=== PATIENT | female | born 1970 | race Two or more races ===

== ENCOUNTER 2024-03-24 04:51 | Emergency (ER) | payer OTHER ==
[~2024-03-24] VITALS: Ht 157.5 cm; Wt 75.7 kg
[2024-03-24] MEDS ORDERED: COZAAR25 MG PO (05:05)
[2024-03-24] MEDS ORDERED: VENTOLIN HFA18 GM (05:05)
[2024-03-24] MEDS ORDERED: MEPERIDINE HCL/PF 50 MG/ML VIAL IM STA (05:22)
[2024-03-24] MEDS ORDERED: HYOSCYAMINE SULFATE 0.125 MG TAB.SUBL SL STA (05:22)
[2024-03-24] MEDS ORDERED: RINGERS SOLUTION,LACTATED 1,000 ML IV STA (05:22)
[2024-03-24] MEDS ORDERED: PROMETHAZINE HCL 50 MG/ML AMPUL IM STA (05:23)
[2024-03-24] MEDS ORDERED: PROMETHAZINE HCL 50 MG/ML AMPUL IM ONE (05:27)
[2024-03-24] MEDS ORDERED: HYOSCYAMINE SULFATE 0.125 MG TAB.SUBL ONE (05:27)
[2024-03-24 07:56] LABS: INR 0.97; PARTIAL THROMBOPLASTIN TIME 26.6 SECONDS (22.0-34.0); PROTHROMBIN TIME 10.2 SECONDS (9.0-11.5)
[2024-03-24 08:23] LABS: ALBUMIN 3.6 gm/dL (3.4-5.0); BILIRUBIN TOTAL 0.21 mg/dL (0.3-1.2); CALCIUM 9.8 mg/dL (8.5-10.1); CREATININE SERUM 0.73 mg/dL (0.55-1.02); GFR 83.39; GLOBULINA 3.6 G/DL (2.4-3.5); POTASSIUM 3.7 mEq/L (3.5-5.1); TOTAL PROTEIN 7.2 gm/dL (6.4-8.2)
[2024-03-24 08:26] LABS: HEMATOCRIT 38.1 % (36.0-45.00); HEMOGLOBIN 13.2 g/dL (12.0-15.00); MEAN CELL VOLUME 92.4 fL (80.00-100.00); MEAN CORPUSCULAR HGB CONC 34.6 g/dl (32.0-36.0); PLATELET COUNT 190 K/uL (150-450); RED BLOOD COUNT 4.12 M/uL (4.00-6.00); RED CELL DISTRIBUTION WIDTH 13.7 % (11.5-14.5)
[2024-03-24] MEDS ORDERED: KETOROLAC TROMETHAMINE 15 MG VIAL IV ONE (17:30)
[2024-03-24] MEDS ORDERED: KETOROLAC TROMETHAMINE 30 MG VIAL ONE (17:45)
== END 2024-03-24 18:06 | disposition home or self-care (01) ==
LOC: ER 04:53
DX: K80.20 Calculus of gallbladder without cholecystitis without obstruction (principal)